=== PATIENT | male | born 1945 | race Caucasian/White ===

== ENCOUNTER 2021-08-17 14:36 | Outpatient (CLI) | payer MEDICARE | END 2021-08-17 14:37 | disposition home or self-care (01) | LOC: TBSIIMAG 14:36 | PROVIDERS: ATTEND Neurological Surgery | DX: M47.26 Other spondylosis with radiculopathy, lumbar region (principal); M47.12 Other spondylosis with myelopathy, cervical region; M51.16 Intervertebral disc disorders with radiculopathy, lumbar region; M50.01 Cervical disc disorder with myelopathy, high cervical region; M48.02 Spinal stenosis, cervical region | CPT/HCPCS: 72050; 72110; 72141; 72148 ==

== ENCOUNTER 2021-09-04 13:31 | Outpatient (CLI) | payer MEDICARE | END 2021-09-04 13:32 | disposition home or self-care (01) | LOC: TBSIIMAG 13:31 | PROVIDERS: ATTEND Neurological Surgery | DX: G95.20 Unspecified cord compression (principal); R26.9 Unspecified abnormalities of gait and mobility; M47.814 Spondylosis without myelopathy or radiculopathy, thoracic region; M48.02 Spinal stenosis, cervical region; I67.82 Cerebral ischemia | CPT/HCPCS: 70551; 72146 ==

== ENCOUNTER 2021-09-17 14:08 | Outpatient (CLI) | payer MEDICARE ==
[2021-09-17 15:25] LABS: Hemoglobin 13.6 g/dL (13.5-17.5); Mean Corpuscular HGB CONC 34.2 g/dL (32.0-36.0); Mean Corpuscular Hemoglobin 34.4 pg (27.0-33.0); Mean Corpuscular Volume 100.8 fl (81.2-95.1); Mean Platelet Volume 11.8 fl (7.4-10.4); Platelet Count 275 10x3/uL (150-450); RBC Distribution Width 17.9 % (11.5-14.5); Red Blood Cell (RBC) Count 3.95 10x6/uL (4.32-5.72); White Blood Cell (WBC) Count 10.3 10x3/uL (3.5-10.5)
[2021-09-17 15:42] LABS: PTT 27.2 sec (22.0-33.0); Prothrombin Time 10.9 sec (9.5-12.1)
[2021-09-17 15:51] LABS: Anion Gap 16 mmol/L (10-20); BUN (Urea Nitrogen) 14 mg/dL (8.4-25.7); Calc. Creatinine Clearance 0 mL/min (70-130); Calcium 9.9 mg/dL (7.8-10.44); Carbon Dioxide 25 mmol/L (23-31); Chloride 108 mmol/L (98-107); Glucose 97 mg/dL (83-110); Potassium 4.5 mmol/L (3.5-5.1); Sodium 144 mmol/L (136-145)
== END 2021-09-17 14:09 | disposition home or self-care (01) ==
LOC: LABBT 14:08
PROVIDERS: ATTEND Neurological Surgery
DX: Z01.812 Encounter for preprocedural laboratory examination (principal); Z20.822 Contact with and (suspected) exposure to COVID-19
CPT/HCPCS: 80048; 85027; 85610; 85730; U0003; U0005

== ENCOUNTER 2021-09-22 05:29 | Day surgery (SDC) | payer MEDICARE ==
[2021-09-18 14:16] VITALS: BMI 27.3
[2021-09-22] MEDS ORDERED: Lidocaine 2% 6 ML SYR ONE (06:11)
[2021-09-22] MEDS ORDERED: fentaNYL Citrate/PF 100 MCG/2 ML SYRINGE ONE ×2 (06:11→08:44)
[2021-09-22] MEDS ORDERED: Thrombin 5000 UNITS/5 ML VIAL ONE (06:12)
[2021-09-22] MEDS ORDERED: Neomycin-Polymyxin 1 ML AMP ONE (06:12)
[2021-09-22] MEDS ORDERED: CEFAZOLIN 2 GM VIAL ONE (06:38)
[2021-09-22] MEDS ORDERED: Sodium Chloride 0.9% 100 ML ONE (06:38)
[2021-09-22] MEDS ORDERED: Rocuronium Bromide 10 MG/ML (10ML VIAL) ONE (07:00)
[2021-09-22] MEDS ORDERED: Dexamethasone 20 MG/5 ML VIAL ONE (07:00)
[2021-09-22] MEDS ORDERED: Ondansetron PF 4 MG/2 ML Vial ONE (07:00)
[2021-09-22] MEDS ORDERED: Ketorolac Tromethamine 30 MG/ML VIAL ONE (07:00)
[2021-09-22] MEDS ORDERED: ePHEDrine 50 MG/ML VIAL ONE (07:00)
[2021-09-22] MEDS ORDERED: Lidocaine 1% PF 5 ML VIAL ONE (07:00)
[2021-09-22] MEDS ORDERED: PROPOFOL 200 MG/20 ML VIAL ONE (07:00)
[2021-09-22] MEDS ORDERED: SUGAMMADEX SODIUM 200 MG/2 ML VIAL ONE (11:43)
[2021-09-22] MEDS ORDERED: Fentanyl 100 MCG/2 ML VIAL ONE (12:45)
== END 2021-09-22 15:26 | disposition home or self-care (01) ==
LOC: SDC 05:29
PROVIDERS: ATTEND Neurological Surgery
PROC: 0RG20A0 Fusion of 2 or more Cervical Vertebral Joints with Interbody Fusion Device, Anterior Approach, Anterior Column, Open Approach (ICD-10-PCS; principal; 2021-09-22)
DX: M50.021 Cervical disc disorder at C4-C5 level with myelopathy (principal); M50.121 Cervical disc disorder at C4-C5 level with radiculopathy; M48.02 Spinal stenosis, cervical region; M47.816 Spondylosis without myelopathy or radiculopathy, lumbar region; Z79.899 Other long term (current) drug therapy; Z88.4 Allergy status to anesthetic agent
CPT/HCPCS: 76000; C1713; J0690; J1100; J1885; J2405; J2704; J3010; J3490

== ENCOUNTER 2022-02-23 10:06 | Outpatient (CLI) | payer MEDICARE | END 2022-02-23 10:07 | disposition home or self-care (01) | LOC: TBSIIMAG 10:06 | PROVIDERS: ATTEND Neurological Surgery | DX: M54.2 Cervicalgia (principal); R26.81 Unsteadiness on feet; M47.812 Spondylosis without myelopathy or radiculopathy, cervical region; M47.813 Spondylosis without myelopathy or radiculopathy, cervicothoracic region; Z98.890 Other specified postprocedural states | CPT/HCPCS: 72050; 72141 ==

== ENCOUNTER 2022-05-26 08:19 | Outpatient (CLI) | payer MEDICARE ==
[2022-05-26] MEDS ORDERED: Magnevist 469MG/ML 20 ML VIAL ONE ×3 (09:14)
== END 2022-05-26 08:20 | disposition home or self-care (01) ==
LOC: MRI 08:19
PROVIDERS: ATTEND Psychiatry & Neurology Neurology
DX: R26.89 Other abnormalities of gait and mobility (principal); G93.89 Other specified disorders of brain; I67.89 Other cerebrovascular disease; M47.812 Spondylosis without myelopathy or radiculopathy, cervical region; M50.323 Other cervical disc degeneration at C6-C7 level; R60.9 Edema, unspecified; Z98.1 Arthrodesis status
CPT/HCPCS: 70553; 72156; 72157; A9579

== ENCOUNTER 2022-11-18 09:38 | Outpatient (CLI) | payer MEDICARE | END 2022-11-18 09:39 | disposition home or self-care (01) | LOC: NM 09:38 | PROVIDERS: ATTEND Psychiatry & Neurology Neurology | DX: R26.89 Other abnormalities of gait and mobility (principal) | CPT/HCPCS: 78803; A9584 ×2 ==